=== PATIENT | female | born 1985 | race Caucasian/White ===

== ENCOUNTER 2017-11-24 11:53 | Inpatient (IN) | payer BC ==
[~2017-11-24] VITALS: Ht 165.1 cm; Wt 75.0 kg
[2017-11-24] MEDS ORDERED: OXYTOCIN 30U/ 0.9% NaCL 500ML 500 ML ONE (12:02)
[2017-11-24] MEDS ORDERED: LIDOCAINE 1%, 50ML ONE (12:02)
[2017-11-24] MEDS ORDERED: NEWBORN KIT ONE (12:02)
[2017-11-24] MEDS ORDERED: OXYTOCIN 10 UNITS/ML, 1ML ONE (12:02)
[2017-11-24] MEDS ORDERED: MISOPROSTOL 200 MCG TABLET ONE ×2 (12:02→15:21)
[2017-11-24] MEDS ORDERED: OXYTOCIN 30U/ 0.9% NaCL 500ML 500 ML IV ONE (12:08)
[2017-11-24] MEDS ORDERED: LACTATED RINGERS 1,000 ML IV SCH (12:08)
[2017-11-24] MEDS ORDERED: FENTANYL PF 100 MCG/2ML IVPush PRN (12:30)
[2017-11-24] MEDS ORDERED: FENTANYL PF 100 MCG/2ML IV PRN (12:30)
[2017-11-24] MEDS: OXYTOCIN 30U/ 0.9% NaCL 500ML 500 ML IV SCH ×2 (14:17→16:10)
[2017-11-24] MEDS ORDERED: DOCUSATE 100 MG CAPSULE PO PRN (14:30)
[2017-11-24] MEDS ORDERED: MISOPROSTOL 200 MCG TABLET PR PRN (14:30)
[2017-11-24] MEDS ORDERED: METHYLERGONOVINE 0.2 MG/ML IM PRN (14:30)
[2017-11-24] MEDS ORDERED: HYDROcodone/APAP 5/325 TABLET PO PRN ×2 (14:30)
[2017-11-24] MEDS ORDERED: IBUPROFEN 600 MG TABLET PO PRN (14:30)
[2017-11-24] MEDS ORDERED: ACETAMINOPHEN 325 MG TABLET PO PRN (14:30)
[2017-11-24] MEDS ORDERED: ONDANSETRON 2MG/ML, 2ML IV PRN (14:30)
[2017-11-24] MEDS ORDERED: IBUPROFEN 600 MG TABLET ONE (14:32)
[2017-11-24 16:18] LABS: MEAN CORPUSCULAR HEMOGLOBIN 28.7 pg (27.0-34.8); MEAN CORPUSCULAR HGB CONC 33.9 g/dL (32.4-35.8); MEAN CORPUSCULAR VOLUME 84.7 fL (80-100); PLATELET COUNT 267 x10^3/uL (130-400); RED BLOOD COUNT 5.02 x10^6/uL (3.82-5.3); RED CELL DISTRIBUTION WIDTH 15.5 % (9.6-15.2)
[2017-11-24 16:19] LABS: MD YES
[2017-11-24 16:22] LABS: <PLATELET ESTIMATE> ADEQUATE; <RBC MORPHOLOGY> NORMAL; BAND#(MANUAL) 1.95 x10^3/uL; BANDS%(MANUAL) 6 % (0-7); LYMPH#(MANUAL) 0.98 x10^3/uL (1-3.4); LYMPHS% (MANUAL) 3 % (22-44); MONOS#(MANUAL) 0.98 x10^3/uL (0.3-2.7); MONOS% (MANUAL) 3 % (2-9); SEGS% (MANUAL) 88 % (42-75)
[2017-11-24 16:23] LABS: LARGE PLATELETS 1+; TOXIC GRAN 1+
[2017-11-24 17:43] VITALS: BP 119/79
[2017-11-24 20:00] VITALS: BP 117/78
[2017-11-25] MEDS: OXYTOCIN 30U/ 0.9% NaCL 500ML 500 ML IV SCH ×2 (00:17→02:44)
[2017-11-25 00:29] VITALS: BP 103/62
[2017-11-25 01:45] LABS: MEAN CORPUSCULAR HEMOGLOBIN 28.8 pg (27.0-34.8); MEAN CORPUSCULAR HGB CONC 34.4 g/dL (32.4-35.8); MEAN CORPUSCULAR VOLUME 83.8 fL (80-100); PLATELET COUNT 193 x10^3/uL (130-400); RED BLOOD COUNT 3.47 x10^6/uL (3.82-5.3); RED CELL DISTRIBUTION WIDTH 15.6 % (9.6-15.2)
[2017-11-25 02:01] LABS: MD YES
[2017-11-25 02:04] LABS: BAND#(MANUAL) 0.45 x10^3/uL; BANDS%(MANUAL) 2 % (0-7); LYMPH#(MANUAL) 2.71 x10^3/uL (1-3.4); LYMPHS% (MANUAL) 12 % (22-44); MONOS#(MANUAL) 1.81 x10^3/uL (0.3-2.7); MONOS% (MANUAL) 8 % (2-9); SEG#(MANUAL) 17.63 x10^3/uL (1.8-6.8); SEGS% (MANUAL) 78 % (42-75)
[2017-11-25 02:06] LABS: <PLATELET ESTIMATE> ADEQUATE; <PLT MORPHOLOGY> NORMAL PLT MORPH; <RBC MORPHOLOGY> NORMAL
[2017-11-25 08:00] VITALS: BP 112/72
[2017-11-25] MEDS ORDERED: LACTATED RINGERS 1,000 ML IV SCH (08:30)
[2017-11-25] MEDS: PRENATAL VIT/IRON/FA 1 EACH TABLET PO SCH (09:30)
[2017-11-25 11:50] VITALS: BP 114/71
[2017-11-25 19:40] VITALS: BP 118/75
[2017-11-26 08:00] VITALS: BP 115/76
[2017-11-26] MEDS: PRENATAL VIT/IRON/FA 1 EACH TABLET PO SCH (09:00)
== END 2017-11-26 12:05 | disposition home or self-care (01) | DRG 774 ==
LOC: LDIP 11:53 → 2NW 17:17
PROVIDERS: ADMIT Obstetrics & Gynecology Maternal & Fetal Medicine; ATTEND Obstetrics & Gynecology Maternal & Fetal Medicine
PROC: 10E0XZZ Delivery of Products of Conception, External Approach (ICD-10-PCS; principal; 2017-11-24)
PROC: 0KQM0ZZ Repair Perineum Muscle, Open Approach (ICD-10-PCS; 2017-11-24)
DX: O76 Abnormality in fetal heart rate and rhythm complicating labor and delivery (principal); O72.1 Other immediate postpartum hemorrhage; O99.12 Other diseases of the blood and blood-forming organs and certain disorders involving the immune mechanism complicating childbirth; D68.2 Hereditary deficiency of other clotting factors; O70.1 Second degree perineal laceration during delivery; Z37.0 Single live birth; Z3A.39 39 weeks gestation of pregnancy; D64.9 Anemia, unspecified; Z79.82 Long term (current) use of aspirin; O99.03 Anemia complicating the puerperium
CPT/HCPCS: 36415; 85025; 86850; 86900; G0378; J2590; J7120